=== PATIENT | male | born 1955 | race Caucasian/White ===

== ENCOUNTER 2017-01-01 11:00 | Observation (INO) | payer OTHER ==
--- NOTE | 2017-01-01 11:25 | PDOC ---
History of Present Illness - General History Source: Patient, Old Records - History of Present Illness Initial Comments: 01/01/17 12:21 The patient is a 61-year-old man, current someday cigarette smoker, with a significant past medical history of hypercholesterolemia, coronary artery disease status post 3 stents, myocardial infarction, congestive heart failure, chronic obstructive pulmonary disease, sleep apnea, non insulin-dependent diabetes mellitus and gastroesophageal reflux disease who presents to the emergency department via EMS for further evaluation of somnolence. Patient was in his PMDs, Dr. Ramos office this morning, for a scheduled appointment when he was noted to be somnolent. EMS was activated. Upon interview, patient stated that he fell yesterday but denies head injury. He states he woke up this morning and he couldn't get up, but still managed to get up and go to his scheduled appointment. Patient states that he lost consciousness in the office. Off note, patient was lats admitted in this hospital on 10/2016 for ACS. Allergies: No Known Drug Allergies. Past Surgical History: CABG. AICD. Stent Placement x3. Bilateral knee replacements. Right hip replacement. Social History: Current some day cigarette smoker. No ETOH and recreational drug use. Primary Care Physician: Dr. Raul Espinoza [phone] <Nettie Aguayo - Last Filed: 01/01/17 14:00> <Jero Roque - Last Filed: 01/01/17 14:38> - General Chief Complaint: Lethargy Stated Complaint: Overdose Time Seen by Provider: 01/01/17 11:13 Past History <Nettie Aguayo - Last Filed: 01/01/17 14:00> - Past Medical History Anemia: No Asthma: No Cancer: No Cardiac Disorders: Yes ([place]) CVA: No COPD: No CHF: Yes Dementia: No Diabetes: Yes (NIDDM) GI Disorders: Yes (ACID REFLUX) Disorders: No HTN: No (LOW BP) Hypercholesterolemia: Yes Liver Disease: No Suicide Attempt (Hx): No Seizures: No Thyroid Disease: No - Surgical History Abdominal Surgery: No Appendectomy: No Cardiac Surgery: Yes (CABG ,STENT X 3, AICD) Cholecystectomy: No Lung Surgery: No Neurologic Surgery: No Orthopedic Surgery: Yes (BL KNEES & RT HIP REPLACEMENT) - Immunization History Immunization Up to Date: Yes - Psycho/Social/Smoking Cessation Hx Anxiety: No Suicidal Ideation: No Smoking History: Current some day smoker Have you smoked in the past 12 months: Yes Number of Cigarettes Smoked Daily: 1 If you are a former smoker, when did you quit?: few months ago Cigars Per Day: 0 'Breaking Loose' booklet given: 09/07/15 Hx Alcohol Use: No Drug/Substance Use Hx: No Substance Use Type: None Hx Substance Use Treatment: No <Jero Roque - Last Filed: 01/01/17 14:38> - Past Medical History Allergies/Adverse Reactions: Allergies Allergy/AdvReac Type Severity Reaction Status Date / Time No Known Allergies Allergy Verified 10/18/16 15:05 Home Medications: Ambulatory Orders Alprazolam [Xanax] 2 mg PO QID #60 tablet 07/21/15 Aspirin [ASA -] 81 mg PO DAILY #30 tab.chew 07/21/15 Atorvastatin Ca [Lipitor] 10 mg PO HS #30 tablet 07/21/15 Esomeprazole Mag Trihydrate [Nexium] 40 mg PO DAILY #60 capsule.dr 07/21/15 FENTANYL 50mcg PATCH [DURAGESIC 50mcg PATCH -] 1 each TD Q48H #10 07/21/15 Furosemide [Lasix -] 20 mg PO DAILY #30 tablet 07/21/15 Gabapentin [Neurontin -] 300 mg PO BID #60 capsule 07/21/15 Lisinopril [Prinivil] 20 mg PO DAILY #30 tablet 07/21/15 Metoprolol Succinate [Toprol XL -] 100 mg PO DAILY #30 tab.sr.24h 07/21/15 Oxycodone HCl [Roxicodone -] 15 mg PO Q6HPO PRN #60 tablet 07/21/15 Oxycodone Sr [Oxycontin] 80 mg PO TID PRN #60 tab.er.12h 07/21/15 Potassium Chloride [K-Dur -] 20 meq PO DAILY #30 tablet.er 07/21/15 Rivaroxaban [Xarelto -] 20 mg PO DAILY #30 tablet 07/21/15 Sennosides [Senna -] 2 tab PO HS PRN #60 tablet 07/21/15 Sitagliptin Phosphate [Januvia] 100 mg PO DAILY #30 tablet 07/21/15 Spironolactone 25 mg PO DAILY #30 tablet 07/21/15 Zolpidem Tartrate [Ambien] 10 mg PO HS #14 tablet 07/21/15 Metformin HCl 1,000 mg PO DAILY 07/23/15 Mometasone Furoate [Nasonex] 1 - 2 inh NS DAILY 07/23/15 Roflumilast [Daliresp] 500 mcg PO DAILY 07/23/15 Lidocaine 5% Patch [Lidoderm -] 1 patch TP DAILY 08/14/15 Mometasone/Formoterol [Dulera 100 Mcg/5 Mcg Inhaler] 2 inh IH BID 08/14/15 Polyethylene Glycol 3350 [Miralax 255 gm Btl -] 17 gm PO DAILY 08/14/15 Magnesium Oxide [Mag-Ox -] 400 mg PO BID tablet 09/12/15 Review of Systems - Review of Systems Constitutional: No: Chills, Fever Respiratory: No: Cough, Shortness of Breath Cardiac (ROS): Yes: Chest Pain, Lightheadedness, Syncope ABD/GI: No: Nausea, Vomiting All Other Systems: Reviewed and Negative <Jero Roque - Last Filed: 01/01/17 14:38> *Physical Exam - Vital Signs Last Vital Signs Temp Pulse Resp BP Pulse Ox 98.3 F 76 18 91/64 95 01/01/17 11:30 01/01/17 11:30 01/01/17 11:30 01/01/17 11:30 01/01/17 11:30 - Physical Exam Comments: 01/01/17 12:21 GENERAL: The patient is awake. Somnolent but arousable. HEAD: Normal with no signs of trauma. EYES: Pupils equal, round and reactive to light, extraocular movements intact, sclera anicteric, conjunctiva clear with no pallor. ENT: Ears normal, nares patent, oropharynx clear without exudates. Moist mucous membranes. NECK: Normal range of motion, supple without lymphadenopathy, JVD, or masses. LUNGS: Coarse bibasilar breath sounds no significant crackles. Good air entry. No prolonged exp. O2 saturation is 98 percent on room air HEART: Regular rate and rhythm, normal S1 and S2 without murmur or rub. ABDOMEN: Soft/nontender/nondistended. BS wnl. No guarding or rebound. No palpable masses. No hepatosplenomegaly. EXTREMITIES: Normal range of motion, trace pretibial edema, bilaterally. No clubbing or cyanosis. No cords, erythema, or tenderness. NEUROLOGICAL: Cranial nerves II through XII grossly intact. Normal speech. PSYCH: Normal mood, normal affect. SKIN: Warm, Dry, normal turgor, no rashes or lesions noted. <Nettie Aguayo - Last Filed: 01/01/17 14:00> Heart Score/ECG Review #1 ECG reviewed & interpreted by me at: 11:15 General ECG Interpretation: Sinus Rhythm, Normal Rate (80), Normal Intervals ( qtc 120, nonspecific intraventricular conduction delay), No acute ischemic changes (TWI I/AVL, V5-6) Compared to previous ECG there are: No significant change (10/18/16) <Jero Roque - Last Filed: 01/01/17 14:38> ED Treatment Course - LABORATORY CBC & Chemistry Diagram: 01/01/17 12:04 01/01/17 12:04 - ADDITIONAL ORDERS Additional order review: 01/01/17 12:04 RBC 3.48 L MCV 91.4 MCHC 33.3 RDW 15.2 MPV 9.6 Neutrophils % 79.3 Lymphocytes % 15.0 D Monocytes % 3.8 Eosinophils % 1.4 Basophils % 0.5 - RADIOLOGY Radiograph Interpretation: 01/01/17 12:52 EXAM: RAD/CHEST X-RAY PORTABLE IMPRESSION: Since 10/18/2016 there is no significant change. Again noted is a large heart, sternal sutures and clips and pacemaker. There are prominent central markings. The angles are sharp and the soft tissues are intact and acute process is not seen. EXAM: CT/HEAD CT WITHOUT CONTRAST IMPRESSION: Since 09/17/2016, there remains [id number] volume loss and ventricular dilatation. No mass lesion, gross acute infarct or intracranial hemorrhage is seen. There is no shift of the midline structures. The craniocervical junction appears unremarkable. Minimal mucosal thickening in the left maxillary antrum, posteriorly. Retention cyst versus polyp in the left maxillary antrum measuring 1.1 cm that appears to be obstructing/significantly narrowing the left maxillary ostium. Mastoid air cells are well aerated and the calvarium is intact. <Nettie Aguayo - Last Filed: 01/01/17 14:00> - LABORATORY CBC & Chemistry Diagram: 01/01/17 12:04 01/01/17 12:04 <Jero Roque - Last Filed: 01/01/17 14:38> Medical Decision Making - Medical Decision Making 01/01/17 13:[address] Alexis García. 01/01/17 14:00 Second call placed to Dr. Alexis García <Netite Aguayo - Last Filed: 01/01/17 14:00> - Medical Decision Making 01/01/17 12:28 A portion of this note was documented by scribe services under my direction. I have reviewed the details of the note, within reason, and agree with the documentation with the following case summary and management plan written by me. 61-year-old male well-known to this ED and institution, history of severe heart disease and opiate dependence sense from Dr. Espinoza's office with somnolence and syncope. Patient presented there for routine appointment, had borderline blood pressure of 88 systolic and was somnolence, on EMSs arrival was given normal saline bolused with improved mental status and blood pressure, no Narcan was given given adequate respiratory status. A calvo here somnolent, easily arousable, complaining of his chronic generalized body aches but no specific cardiopulmonary complaints. Vitals as noted. O2 sat normal on room air. By basilar coarse breath sounds, chronic trace lower extremity edema, neurologically intact 61-year-old male with chronic opiate use and CHF presents with hypotension, generalized weakness, near syncope in PMDs office. Patient did have a fall last night, rule out TBI. Labs, EKG Chest x-ray, CT head Observe, likely admission 01/01/17 14:10 Hemoglobin 10.6, chemistries at baseline with creatinine 1.3, troponin negative , BNP slightly elevated, but lactate 3. Chest x-ray shows chronically enlarged heart, CT head shows no acute pathology. Patient received IV fluids, will hold given history of CHF, but will require gentle hydration. Service case as per Dr. García, called in to hospitalist service. 01/01/17 14:[address] Marley for obs tele. <Jero Roque - Last Filed: 01/01/17 14:38> *DC/Admit/Observation/Transfer <Nettie Aguayo - Last Filed: 01/01/17 14:00> - Discharge Dispostion Admit: Yes <Jero Roque - Last Filed: 01/01/17 14:38> Diagnosis at time of Disposition: Syncope and collapse CHF (congestive heart failure) Qualifiers: Congestive heart failure type: unspecified congestive heart failure type Congestive heart failure chronicity: chronic Qualified Code(s): I50.9 - Heart failure, unspecified Hypotension Qualifiers: Trimester: unspecified trimester - Discharge Dispostion Condition at time of disposition: Fair - Referrals Referrals: Clem Claudio MD [Primary Care Provider] -
[2017-01-01 11:34] VITALS: BMI 32.2
[2017-01-01 12:14] LABS: BASOPHIL 0.5 % (0-2.0); EOSINOPHIL 1.4 % (0-4.5); MCH 30.4 pg (25.7-33.7); MCHC 33.3 g/dl (32.0-35.9); MEAN CELL VOLUME 91.4 fl (80-96); MEAN PLT VOLUME 9.6 fl (7.5-11.1); NEUTROPHILS 79.3 % (42.8-82.8); PLATELET COUNT 134 K/MM3 (134-434); RDW 15.2 % (11.9-15.9); WHITE BLOOD COUNT 8.7 K/mm3 (4.0-10.0)
[2017-01-01 12:29] LABS: INR 1.71 (0.82-1.09)
[2017-01-01 12:41] LABS: ALBUMIN 3.3 g/dl (3.4-5.0); BILIRUBIN,TOTAL 0.6 mg/dL (0.2-1.0); CALCIUM 8.2 mg/dL (8.5-10.1); CREATININE 1.3 mg/dL (0.7-1.3); MAGNESIUM 1.3 mg/dL (1.8-2.4); TOT PROT 6.8 g/dl (6.4-8.2)
[2017-01-01 13:22] LABS: TROPONIN I 0.02 ng/ml (0.00-0.05)
--- NOTE | 2017-01-01 13:49 | EKG ---
Test Reason : Blood Pressure : / mmHG Vent. Rate : 080 BPM Atrial Rate : 080 BPM P-R Int : 168 ms QRS Dur : 120 ms QT Int : 394 ms P-R-T Axes : -06 -10 126 degrees QTc Int : 454 ms NORMAL SINUS RHYTHM INFERIOR INFARCT (CITED ON OR BEFORE 16-JAN-2005) ANTERIOR INFARCT (CITED ON OR BEFORE 16-JAN-2005) ABNORMAL ECG WHEN COMPARED WITH ECG OF 18-OCT-2016 15:07, ST NO LONGER ELEVATED IN ANTERIOR LEADS NONSPECIFIC T WAVE ABNORMALITY NOW EVIDENT IN ANTERIOR LEADS Confirmed by CRISTINE VO MD ([id number]) on 01/01/2017 1:49:39 PM Referred By: Confirmed By:CRISTINE VO MD
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
--- NOTE | 2017-01-01 17:11 | PN ---
Teaching Attending Note Name of Resident: Anusha Chilel ATTENDING PHYSICIAN STATEMENT I saw and evaluated the patient. I reviewed the resident's note and discussed the case with the resident. I agree with the resident's findings and plan as documented. SUBJECTIVE: OBJECTIVE: Vital Signs Period Temp Pulse Resp BP Sys/Ford Pulse Ox Last 24 Hr 98.3 F 76 18 91/64 95 ASSESSMENT AND PLAN:
[2017-01-01] MEDS ORDERED: NAPROXEN 500 MG TABLET (FP) PO SCH (22:00)
[2017-01-01] MEDS ORDERED: ATORVASTATIN CA 10 MG TABLET (FP) PO SCH (22:00)
[2017-01-01] MEDS ORDERED: LYRICA 150 MG PO SCH (22:00)
[2017-01-01] MEDS ORDERED: NAPROSYN PO SCH (22:00)
[2017-01-01] MEDS ORDERED: HEPARIN NA (PORCINE) 5,000 UNITS/ML 1ML VIAL SQ SCH (22:00)
[2017-01-01] MEDS: INSULIN SLIDING SCALE (NOVOLOG) 1 VIAL SQ SCH (23:06)
[2017-01-01] MEDS: PREGABALIN 75 MG CAPSULE PO SCH (23:10)
[2017-01-01] MEDS: NAPROXEN 500 MG TABLET (FP) PO SCH (23:10)
[2017-01-01] MEDS: GABAPENTIN 300 MG CAPSULE (FP) PO SCH (23:10)
[2017-01-01] MEDS: ALPRAZolam 2 MG TABLET PO PRN (23:20)
[2017-01-02] MEDS: INSULIN SLIDING SCALE (NOVOLOG) 1 VIAL SQ SCH ×2 (06:28→12:10)
[2017-01-02 06:53] LABS: BASOPHIL 0.6 % (0-2.0); EOSINOPHIL 2.8 % (0-4.5); MCH 30.5 pg (25.7-33.7); MCHC 33.5 g/dl (32.0-35.9); MEAN CELL VOLUME 91.1 fl (80-96); MEAN PLT VOLUME 9.7 fl (7.5-11.1); PLATELET COUNT 144 K/MM3 (134-434); RDW 15.3 % (11.9-15.9); WHITE BLOOD COUNT 7.2 K/mm3 (4.0-10.0)
[2017-01-02 07:24] LABS: ALBUMIN 3.4 g/dl (3.4-5.0); ANION GAP 8 (8-16); CALCIUM 8.7 mg/dL (8.5-10.1); CO2 28 mmol/L (21-32); GLUCOSE,RANDOM 113 mg/dL (74-106); MAGNESIUM 1.6 mg/dL (1.8-2.4)
[2017-01-02 07:29] LABS: ALK PHOS 63 U/L (45-117); BILIRUBIN,TOTAL 0.6 mg/dL (0.2-1.0); CREATININE 1.1 mg/dL (0.7-1.3); PHOSPHOROUS 3.4 mg/dL (2.5-4.9); SGOT/AST 158 U/L (15-37); SGPT/ALT 50 U/L (12-78); TOT PROT 6.7 g/dl (6.4-8.2)
[2017-01-02 08:07] VITALS: BP 91/53; PULSE 56; TEMP 97.9
[2017-01-02] MEDS ORDERED: MAGNESIUM OXIDE 400 MG TABLET (FP) PO ONE ×2 (08:10→10:30)
[2017-01-02] MEDS ORDERED: PATIENT'S OWN MEDICATION (NON-FORMULARY) (Esomeprazole Mag Trihydrate [Nexium] 40 MG) PO SCH (10:00)
[2017-01-02] MEDS ORDERED: NITRO DUR TD SCH (10:00)
[2017-01-02] MEDS ORDERED: DULoxetine HCL 30 MG CAPSULE.DR (FP) PO SCH (10:00)
[2017-01-02] MEDS ORDERED: FUROSEMIDE 20 MG TABLET (FP) PO SCH (10:00)
[2017-01-02] MEDS ORDERED: LISINOPRIL 20 MG TABLET (FP) PO SCH (10:00)
[2017-01-02] MEDS ORDERED: NITROGLYCERIN 0.4 MG/HOUR TD PATCH TD SCH (10:00)
[2017-01-02] MEDS ORDERED: POTASSIUM CHLORIDE TABS 20 MEQ TABLET.ER (FP) PO SCH (10:00)
[2017-01-02] MEDS ORDERED: DULOXETINE HCL 30 MG PO SCH (10:00)
[2017-01-02] MEDS ORDERED: RIVAROXABAN 20 MG TABLET PO SCH (10:00)
[2017-01-02] MEDS ORDERED: PANTOPRAZOLE 40 MG TABLET (FP) PO SCH ×2 (10:00)
[2017-01-02] MEDS ORDERED: ASPIRIN 81 MG CHEWABLE TABLETS PO SCH (10:00)
[2017-01-02] MEDS: GABAPENTIN 300 MG CAPSULE (FP) PO SCH (10:12)
[2017-01-02] MEDS: PREGABALIN 75 MG CAPSULE PO SCH (10:13)
[2017-01-02] MEDS ORDERED: PT OWN MED DRAWER 7, Y5N ONE (10:18)
[2017-01-02 10:23] LABS: URINE APPEARANCE CLEAR; URINE BILIRUBIN NEGATIVE (NEGATIVE); URINE BLOOD NEGATIVE (NEGATIVE); URINE COLOR YELLOW; URINE GLUCOSE (UA) NEGATIVE (NEGATIVE); URINE KETONE NEGATIVE (NEGATIVE); URINE LEUK ESTERASE NEGATIVE (NEGATIVE); URINE NITRITE NEGATIVE (NEGATIVE); URINE PROTEIN NEGATIVE (NEGATIVE); URINE UROBILINOGEN 2.0 E.U/dl E.U./dl (0.2-1.0)
[2017-01-02] MEDS: NAPROXEN 500 MG TABLET (FP) PO SCH (10:28)
[2017-01-02] MEDS: ALPRAZolam 2 MG TABLET PO PRN (10:57)
--- NOTE | 2017-01-02 12:16 | DS ---
Physical Exam: SUBJECTIVE: Patient seen and examined. Awake, alert, oriented x3. OBJECTIVE: Vital Signs Period Temp Pulse Resp BP Sys/Ford Pulse Ox Last 24 Hr 97.9 F-98.2 F 56-71 18-20 91-120/53-67 95-96 PHYSICAL EXAM GENERAL: The patient is awake, alert, and fully oriented, in no acute distress. HEAD: Normal with no signs of trauma. EYES: PERRL, extraocular movements intact, sclera anicteric, conjunctiva clear. ENT: Ears normal, nares patent, oropharynx clear without exudates, moist mucous membranes. LUNGS: Breath sounds equal, clear to auscultation bilaterally, no wheezes, no crackles, no accessory muscle use. HEART: distant heart sounds, S1 and S2. well-healed midline scar over sternum. ABDOMEN: obese, Soft, nontender, not distended, normoactive bowel sounds, no guarding, no rebound, no masses. EXTREMITIES: 2+ pulses, warm, well-perfused, no edema. well-healed surgical scars over right knee and left shoulder. LABS Laboratory Results - last 24 hr 01/01/17 01/01/17 01/02/17 18:20 23:04 05:35 WBC 7.2 RBC 3.67 L Hgb 11.2 L Hct 33.4 L MCV 91.1 MCHC 33.5 RDW 15.3 Plt Count 144 MPV 9.7 Neutrophils % 59.0 D Lymphocytes % 31.4 D Monocytes % 6.2 Eosinophils % 2.8 D Basophils % 0.6 Sodium Potassium Chloride Carbon Dioxide Anion Gap BUN Creatinine Creat Clearance w eGFR POC Glucometer 125 Random Glucose Lactic Acid 1.591 Calcium Phosphorus Magnesium Total Bilirubin AST ALT Alkaline Phosphatase Total Protein Albumin Urine Color Urine Appearance Urine pH Ur Specific Witt[place] Urine Protein Urine Glucose (UA) Urine Ketones Urine Blood Urine Nitrite Urine Bilirubin Urine Urobilinogen Ur Leukocyte Esterase 01/02/17 01/02/17 01/02/17 05:35 05:49 06:40 WBC RBC Hgb Hct MCV MCHC RDW Plt Count MPV Neutrophils % Lymphocytes % Monocytes % Eosinophils % Basophils % Sodium 139 Potassium 4.7 Chloride 103 Carbon Dioxide 28 Anion Gap 8 BUN 21 H Creatinine 1.1 Creat Clearance w eGFR > 60 POC Glucometer 130 Random Glucose 113 H D Lactic Acid Calcium 8.7 Phosphorus 3.4 Magnesium 1.6 L D Total Bilirubin 0.6 AST 158 H ALT 50 Alkaline Phosphatase 63 Total Protein 6.7 Albumin 3.4 Urine Color Yellow Urine Appearance Clear Urine pH 5.0 Ur Specific Witt[place] 1.021 Urine Protein Negative Urine Glucose (UA) Negative Urine Ketones Negative Urine Blood Negative Urine Nitrite Negative Urine Bilirubin Negative Urine Urobilinogen 2.0 e.u/dl Ur Leukocyte Esterase Negative Laboratory Tests 01/01/17 01/01/17 01/02/17 12:04 18:20 05:35 Lactic Acid 3.007 H* 1.591 Iron Pending TIBC Pending Iron Saturation Pending IMAGING abdominal u/s: There is no evidence of ascites. The gallbladder is normal in size and free of calculi with no evidence of intra or extrahepatic biliary duct dilatation. The liver is enlarged measuring 20.4 cm in cranial caudal dimension. It is hyperechoic in texture consistent with diffuse fatty infiltration. No discrete intrahepatic masses are identified. The pancreas is normal in size and texture with no pancreatic masses identified. The tail of the pancreas was not completely visualized due to overlying bowel gas. The spleen is enlarged measuring 16 cm in craniocaudad dimension. There is no evidence of hydronephrosis or acute renal abnormalities. Head CT: Since 09/17/2016, there remains [id number] volume loss and ventricular dilatation. No mass lesion, gross acute infarct or intracranial hemorrhage is seen. There is no shift of the midline structures. The craniocervical junction appears unremarkable. Minimal mucosal thickening in the left maxillary antrum, posteriorly. Retention cyst versus polyp in the left maxillary antrum measuring 1.1 cm that appears to be obstructing/significantly narrowing the left maxillary ostium. Mastoid air cells are well aerated and the calvarium is intact. HOSPITAL COURSE: Date of Admission:01/01/17 - Date of Discharge: 01/02/17 61 yr old man with systolic CHF, HTN, NIDDM, chronic back pain, COPD, current smoker BIBEMS for near syncope, lethargy found to have elevated lactic acid. Lactic acid improved with bolus of NS. Pain medications were held. Blood pressure and mentation improved. Findings of abdominal ultrasound and head CT summarized above. Patient was anemic on labs, iron studies were pending at time of discharg, recommended to follow-up with PMD after discharge. Minutes to complete discharge: 38 Discharge Summary Reason For Visit: SYNCOPE,INCREASED LACTIC ACID LVL Current Active Problems Hypotension (Acute) CHF (congestive heart failure) (Chronic) COPD (chronic obstructive pulmonary disease) (Chronic) Condition: Improved - Instructions Diet, Activity, Other Instructions: Take your medications as precribed. Follow-up with Dr. Espinoza in one week and your pain doctor Dr. Fried at your regular appointment on January 10. Referrals: Raul Espinoza MD [Staff Physician] - 1 Week Disposition: HOME - Home Medications Comprehensive Discharge Medication List: Ambulatory Orders Aspirin [ASA -] 81 mg PO DAILY #30 tab.chew 07/21/15 Atorvastatin Ca [Lipitor] 10 mg PO HS #30 tablet 07/21/15 Esomeprazole Mag Trihydrate [Nexium] 40 mg PO DAILY #60 capsule.dr 07/21/15 Furosemide [Lasix -] 20 mg PO DAILY #30 tablet 07/21/15 Lisinopril [Prinivil] 20 mg PO DAILY #30 tablet 07/21/15 Potassium Chloride [K-Dur -] 20 meq PO DAILY #30 tablet.er 07/21/15 Rivaroxaban [Xarelto -] 20 mg PO DAILY #30 tablet 07/21/15 Sitagliptin Phosphate [Januvia] 100 mg PO DAILY #30 tablet 07/21/15 Alprazolam [Xanax] 1 mg PO BID 01/01/17 Duloxetine HCl 30 mg PO DAILY 01/01/17 FENTANYL 100mcg PATCH 100 mcg TD DAILY 01/01/17 Gabapentin [Neurontin -] 600 mg PO BID 01/01/17 Lyrica 150 mg PO BID 01/01/17 Naprosyn - 500 mg PO BID 01/01/17 Nitro-Dur Patch - 0.4 adh.patch TD DAILY 01/01/17 Oxycodone HCl [Roxicodone -] 10 mg PO Q6HPO PRN 01/01/17 Oxycodone Sr [Oxycontin] 40 mg PO BID 01/01/17 This patient is new to me today: No Emergency Visit: No Critical Care patient: No - Discharge Referral Referred to [facility] No
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
[2017-01-03 06:06] LABS: SERUM IRON 72 ug/dL (38-169); TOTAL IRON BINDING CAPACITY 233 ug/dL (250-450); UIBC 161 ug/dL (111-343)
== END 2017-01-02 13:25 | disposition home or self-care (01) ==
LOC: JER 11:00 → JERBED 15:08 → J4W 17:50
PROVIDERS: ADMIT Internal Medicine; ATTEND Internal Medicine
DX: R74.0 Nonspecific elevation of levels of transaminase and lactic acid dehydrogenase [LDH] (principal); R55 Syncope and collapse; J44.9 Chronic obstructive pulmonary disease, unspecified; E11.9 Type 2 diabetes mellitus without complications; I25.10 Atherosclerotic heart disease of native coronary artery without angina pectoris; K21.9 Gastro-esophageal reflux disease without esophagitis; M54.89 Other dorsalgia; I25.2 Old myocardial infarction; G47.39 Other sleep apnea; D64.9 Anemia, unspecified; F17.210 Nicotine dependence, cigarettes, uncomplicated; Z95.1 Presence of aortocoronary bypass graft; Z96.641 Presence of right artificial hip joint; Z96.653 Presence of artificial knee joint, bilateral; Z95.810 Presence of automatic (implantable) cardiac defibrillator; Z95.5 Presence of coronary angioplasty implant and graft
CPT/HCPCS: 36415; 70450-TC; 71010-TC; 76700-TC; 80053; 81003; 82550; 82553; 83540; 83550; 83605; 83735; 83880; 84100; 84484; 85025; 85610; 93005; 93010; 99284-25; G0378

== ENCOUNTER 2017-02-04 17:26 | Emergency (ER) | payer OTHER ==
[2017-02-04] MEDS ORDERED: ASPIRIN 81 MG CHEWABLE TABLETS PO ONE (17:29)
--- NOTE | 2017-02-04 17:30 | PDOC ---
Rapid Medical Evaluation Time Seen by Provider: 02/04/17 17:27 Medical Evaluation: Allergies Allergy/AdvReac Type Severity Reaction Status Date / Time No Known Allergies Allergy Verified 02/04/17 17:28 02/04/17 17:29 61 year old male with a history of CAD s/p CO/stents/CABG, AICD, HTN, NIDDM, occasional heroin use, former smoker who presents with crushing chest pain and SOB since morning. Had "a procedure" yesterday for back pain management; can't recall what it was. Appears dyspneic, diaphoretic. Took ASA 81mg today. -Stat EKG -Cardiac labs -ASA 162mg -To Main ED for further evaluation
[2017-02-04 17:33] VITALS: TEMP 97.9; BMI 32.6
[2017-02-04 17:59] LABS: BASOPHIL 0.9 % (0-2.0); EOSINOPHIL 1.8 % (0-4.5); MCH 30.7 pg (25.7-33.7); MCHC 33.9 g/dl (32.0-35.9); MEAN CELL VOLUME 90.5 fl (80-96); MEAN PLT VOLUME 8.9 fl (7.5-11.1); NEUTROPHILS 68.7 % (42.8-82.8); PLATELET COUNT 175 K/MM3 (134-434); RDW 14.9 % (11.9-15.9); WHITE BLOOD COUNT 9.1 K/mm3 (4.0-10.0)
--- NOTE | 2017-02-04 18:11 | PDOC ---
History of Present Illness - General History Source: Patient Exam Limitations: No Limitations - History of Present Illness Initial Comments: 02/04/17 18:34 The patient is a 61 year old male, with a significant past medical history of CAD s/p NC/stents/CABG, AICD, HTN, NIDDM, occasional heroin use, smoker, who presents to the emergency department with chest pain and shortness of breath since this morning. He describes his chest pain as a crushing sensation, that is moderate in severity, without radiation or modifying factors. He notes that he took aspirin 81 mg this mornig. He also notes that he had a procedure yesterday for back pain management. His last use of heroin was yesterday morning. 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 The patient denies headache and dizziness. Denies fever, chills, nausea, vomit, diarrhea and constipation. Allergies: Past surgical history: BL KNEES & RT HIP REPLACEMENT, CABG ,STENT X 3, AICD Social history: Heroin use (last use yesterday motning). Tobacco use. No alcohol use reported. PMD - Dr. Espinoza [employer] - Dr. Armani Gamez <Karthik Khan - Last Filed: 02/04/17 18:34> <Lyndon Sellers - Last Filed: 02/04/17 19:10> - General Chief Complaint: Chest Pain Stated Complaint: CHEST PAIN Time Seen by Provider: 02/04/17 17:27 Past History <Karthik Khan - Last Filed: 02/04/17 18:34> - Past Medical History Anemia: No Asthma: No Cancer: No Cardiac Disorders: Yes (NC) CVA: No COPD: No CHF: Yes Dementia: No Diabetes: Yes (NIDDM) GI Disorders: Yes (ACID REFLUX) Disorders: No HTN: Yes Hypercholesterolemia: Yes Liver Disease: No Suicide Attempt (Hx): No Seizures: No Thyroid Disease: No - Surgical History Abdominal Surgery: No Appendectomy: No Cardiac Surgery: Yes (CABG ,STENT X 3, AICD) Cholecystectomy: No Lung Surgery: No Neurologic Surgery: No Orthopedic Surgery: Yes (BL KNEES & RT HIP REPLACEMENT) - Immunization History Immunization Up to Date: Yes - Psycho/Social/Smoking Cessation Hx Anxiety: Yes Suicidal Ideation: No Smoking History: Former smoker Have you smoked in the past 12 months: Yes Number of Cigarettes Smoked Daily: 1 If you are a former smoker, when did you quit?: few months ago Cigars Per Day: 0 Information on smoking cessation initiated: No 'Breaking Loose' booklet given: 09/07/15 Hx Alcohol Use: No Drug/Substance Use Hx: Yes Substance Use Type: Heroin, Prescribed Hx Substance Use Treatment: No <Lyndon Sellers - Last Filed: 02/04/17 19:10> - Past Medical History Allergies/Adverse Reactions: Allergies Allergy/AdvReac Type Severity Reaction Status Date / Time No Known Allergies Allergy Verified 02/04/17 17:28 Home Medications: Ambulatory Orders Aspirin [ASA -] 81 mg PO DAILY #30 tab.chew 07/21/15 Atorvastatin Ca [Lipitor] 10 mg PO HS #30 tablet 07/21/15 Esomeprazole Mag Trihydrate [Nexium] 40 mg PO DAILY #60 capsule. 07/21/15 Furosemide [Lasix -] 20 mg PO DAILY #30 tablet 07/21/15 Lisinopril [Prinivil] 20 mg PO DAILY #30 tablet 07/21/15 Potassium Chloride [K-Dur -] 20 meq PO DAILY #30 tablet.er 07/21/15 Rivaroxaban [Xarelto -] 20 mg PO DAILY #30 tablet 07/21/15 Sitagliptin Phosphate [Januvia] 100 mg PO DAILY #30 tablet 07/21/15 Alprazolam [Xanax] 1 mg PO BID 01/01/17 Duloxetine HCl 30 mg PO DAILY 01/01/17 FENTANYL 100mcg PATCH 100 mcg TD DAILY 01/01/17 Gabapentin [Neurontin -] 600 mg PO BID 01/01/17 Lyrica 150 mg PO BID 01/01/17 Naprosyn - 500 mg PO BID 01/01/17 Nitro-Dur Patch - 0.4 adh.patch TD DAILY 01/01/17 Oxycodone HCl [Roxicodone -] 10 mg PO Q6HPO PRN 01/01/17 Oxycodone Sr [Oxycontin] 40 mg PO BID 01/01/17 Unobtainable 02/04/17 Review of Systems - Review of Systems Able to Perform ROS?: Yes Comments:: 02/04/17 18:34 GENERAL/CONSTITUTIONAL: No fever or chills. No weakness. HEAD, EYES, EARS, NOSE AND THROAT: No change in vision. No ear pain or discharge. No sore throat. CARDIOVASCULAR: +chest pain and shortness of breath RESPIRATORY: No cough, wheezing, or hemoptysis. GASTROINTESTINAL: No nausea, vomiting, diarrhea or constipation. GENITOURINARY: No dysuria, frequency, or change in urination. MUSCULOSKELETAL: No joint or muscle swelling or pain. No neck or back pain. SKIN: No rash NEUROLOGIC: No headache, vertigo, loss of consciousness, or change in strength/ sensation. ENDOCRINE: No increased thirst. No abnormal weight change HEMATOLOGIC/LYMPHATIC: No anemia, easy bleeding, or history of blood clots. ALLERGIC/IMMUNOLOGIC: No hives or skin allergy. <Karthik Khan - Last Filed: 02/04/17 18:34> *Physical Exam - Vital Signs Last Vital Signs Temp Pulse Resp BP Pulse Ox 97.9 F 109 H 18 159/97 100 02/04/17 17:28 02/04/17 17:28 02/04/17 17:28 02/04/17 17:28 02/04/17 17:28 - Physical Exam Comments: 02/04/17 18:35 GENERAL: Awake, alert, and fully oriented, in no acute distress HEAD: No signs of trauma, normocephalic, atraumatic EYES: PERRLA, EOMI, sclera anicteric, conjunctiva clear ENT: Auricles normal inspection, hearing grossly normal, nares patent, oropharynx clear without exudates. Moist mucosa NECK: Normal ROM, supple, no lymphadenopathy, JVD, or masses LUNGS: No distress, speaks full sentences, clear to auscultation bilaterally HEART: Regular rate and rhythm, normal S1 and S2, no murmurs, rubs or gallops, peripheral pulses normal and equal bilaterally. ABDOMEN: Soft, nontender, normoactive bowel sounds. No guarding, no rebound. No masses EXTREMITIES: Normal inspection, Normal range of motion, no edema. No clubbing or cyanosis. NEUROLOGICAL: Cranial nerves II through XII grossly intact. Normal speech, normal gait, no focal sensorimotor deficits SKIN: Warm, Dry, normal turgor, no rashes or lesions noted. <Karthik Khan - Last Filed: 02/04/17 18:34> - Vital Signs Last Vital Signs Temp Pulse Resp BP Pulse Ox 97.9 F 109 H 18 159/97 100 02/04/17 17:28 02/04/17 17:28 02/04/17 17:28 02/04/17 17:28 02/04/17 17:28 <Lyndon Sellers - Last Filed: 02/04/17 19:10> ED Treatment Course - LABORATORY CBC & Chemistry Diagram: 02/04/17 17:50 02/04/17 17:50 - ADDITIONAL ORDERS Additional order review: 02/04/17 17:50 RBC 4.33 MCV 90.5 MCHC 33.9 RDW 14.9 MPV 8.9 Neutrophils % 68.7 Lymphocytes % 22.2 D Monocytes % 6.4 Eosinophils % 1.8 Basophils % 0.9 <Karthik Khan - Last Filed: 02/04/17 18:34> - LABORATORY CBC & Chemistry Diagram: 02/04/17 17:50 02/04/17 17:50 - ADDITIONAL ORDERS Additional order review: 02/04/17 17:50 RBC 4.33 MCV 90.5 MCHC 33.9 RDW 14.9 MPV 8.9 Neutrophils % 68.7 Lymphocytes % 22.2 D Monocytes % 6.4 Eosinophils % 1.8 Basophils % 0.9 <Lyndon Sellers - Last Filed: 02/04/17 19:10> *DC/Admit/Observation/Transfer - Attestations Scribe Attestion: 02/04/17 18:35 Documentation prepared by Karthik Khan, acting as medical illustrator for Lyndon Sellers MD <Karthik Khan - Last Filed: 02/04/17 18:34> - Discharge Dispostion Admit: No - Attestations Physician Attestion: 02/04/17 18:11 I, Dr. Lyndon Sellers, attest that this document has been prepared under my direction and personally reviewed by me in its entirety. I further attest, that it accurately reflects all work, treatment, procedures and medical decision -making performed by me. <Lyndon Sellers - Last Filed: 02/04/17 19:10> Diagnosis at time of Disposition: Atypical chest pain - Discharge Dispostion Disposition: HOME Condition at time of disposition: Good - Referrals Referrals: Raul Espinoza MD [Primary Care Provider] - - Patient Instructions Printed Discharge Instructions: DI for Atypical Chest Pain Additional Instructions: Salim- Take your medicines. Follow up with your doctors and return to us if any problems. Best- Dr. Lyndon Sellers
[2017-02-04] MEDS ORDERED: ONDANSETRON 4 MG/2 ML VIAL IVPUSH ONE (18:18)
[2017-02-04] MEDS ORDERED: morphine CARPU-JECT 4 MG/1 ML DISP.SYRIN IVPUSH ONE (18:18)
[2017-02-04] MEDS ORDERED: NITROGLYCERIN 2% OINTMENT - 1GM PACKET TD ONE ×2 (18:18→18:31)
[2017-02-04 18:23] LABS: INR 1.55 (0.82-1.09); PROTHROMBIN TIME (PATIENT) 17.2 SEC (9.98-11.88)
[2017-02-04] MEDS ORDERED: morphine CARPU-JECT 4 MG/1 ML DISP.SYRIN ONE (18:31)
[2017-02-04] MEDS ORDERED: ASPIRIN 81 MG CHEWABLE TABLETS ONE (18:31)
[2017-02-04] MEDS ORDERED: ONDANSETRON 4 MG/2 ML VIAL ONE (18:31)
[2017-02-04 18:36] LABS: ALBUMIN 4.1 g/dl (3.4-5.0); ANION GAP 11 (8-16); BILIRUBIN,TOTAL 0.4 mg/dL (0.2-1.0); CALCIUM 9.7 mg/dL (8.5-10.1); CO2 24 mmol/L (21-32); CREATININE 1.3 mg/dL (0.7-1.3); GLUCOSE,RANDOM 119 mg/dL (74-106); SGOT/AST 13 U/L (15-37); SGPT/ALT 16 U/L (12-78); TOT PROT 8.1 g/dl (6.4-8.2)
[2017-02-04 18:38] LABS: ALK PHOS 73 U/L (45-117); TROPONIN I < 0.02 ng/ml (0.00-0.05)
[2017-02-04] MEDS ORDERED: LORazepam 1 MG TABLET PO ONE (19:02)
[2017-02-04] MEDS ORDERED: LORazepam 0.5 MG TABLET ONE (19:08)
[2017-02-04 19:13] VITALS: BP 125/81
[2017-02-04 21:01] VITALS: PULSE 82
--- NOTE | 2017-02-06 17:15 | EKG ---
Test Reason : Blood Pressure : / mmHG Vent. Rate : 090 BPM Atrial Rate : 090 BPM P-R Int : 184 ms QRS Dur : 122 ms QT Int : 352 ms P-R-T Axes : 073 -20 097 degrees QTc Int : 430 ms NORMAL SINUS RHYTHM INFERIOR INFARCT (CITED ON OR BEFORE 16-JAN-2005) ANTEROLATERAL INFARCT (CITED ON OR BEFORE 16-JAN-2005) ABNORMAL ECG WHEN COMPARED WITH ECG OF 01-JAN-2017 11:15, NO SIGNIFICANT CHANGE WAS FOUND Confirmed by LYNDON LIM MD ([id number]) on 02/06/2017 5:14:41 PM Referred By: Confirmed By:LYNDON LIM MD
== END 2017-02-04 20:54 | disposition home or self-care (01) ==
LOC: JER 17:26
PROC: 3E033NZ Introduction of Analgesics, Hypnotics, Sedatives into Peripheral Vein, Percutaneous Approach (ICD-10-PCS; principal; 2017-02-04)
PROC: 3E033GC Introduction of Other Therapeutic Substance into Peripheral Vein, Percutaneous Approach (ICD-10-PCS; 2017-02-04)
DX: R07.89 Other chest pain (principal); Z95.5 Presence of coronary angioplasty implant and graft; I25.10 Atherosclerotic heart disease of native coronary artery without angina pectoris; I25.2 Old myocardial infarction; Z95.1 Presence of aortocoronary bypass graft; I10 Essential (primary) hypertension; E11.9 Type 2 diabetes mellitus without complications; F19.90 Other psychoactive substance use, unspecified, uncomplicated; K21.9 Gastro-esophageal reflux disease without esophagitis; Z87.891 Personal history of nicotine dependence
CPT/HCPCS: 36415; 71010-TC; 80053; 82550; 82553; 83880; 84484; 85025; 85610; 93005; 93010; 96374; 96375; 99283-25